=== PATIENT | male | born 1995 | race Caucasian/White ===

== ENCOUNTER → 2016-05-23 | Outpatient (CLI) | payer BC ==
--- NOTE | 2016-05-23 11:20 | CPEKG ---
Heart Rate: 53 RR Interval: 1132 P-R Interval: 120 QRSD Interval: 102 QT Interval: 404 QTC Interval: 380 P [place]: 22 QRS [place]: 91 T Wave [place]: 43 EKG Severity - NORMAL ECG - EKG Impression: SINUS RHYTHM Electronically Signed By: Melody Davila 23-May-2016 14:38:21
== END ==
LOC: FCP 11:00
PROVIDERS: ATTEND Internal Medicine
DX: Z02.5 Encounter for examination for participation in sport (principal); Z82.49 Family history of ischemic heart disease and other diseases of the circulatory system